=== PATIENT | male | born 1990 | race Caucasian/White ===

== ENCOUNTER 2021-05-28 15:12 | Emergency (ER) | payer BC ==
[2021-05-28 15:22] LABS: Glucose,Whole Blood 93 mg/dL (75-99)
[2021-05-28] MEDS ORDERED: DIPH,PERTUS(ACELL)TETVAC-LF 0.5 ML VIAL IM ONE (15:25)
[2021-05-28] MEDS ORDERED: SODIUM CHLORIDE 0.9% 1,000 ML IV STA (15:30)
--- NOTE | 2021-05-28 15:41 | XR ---
EXAMINATION TYPE: XR chest 1V DATE OF EXAM: 05/28/2021 COMPARISON: NONE HISTORY: Fall. Pain TECHNIQUE: Single view FINDINGS: Heart and mediastinum are normal. Lungs are clear of consolidation. There is some coarsenin g of the interstitial markings in the left midlung field. There are chest leads. There is no pneumoth orax. Bony thorax appears intact. IMPRESSION: Mild interstitial density in the left lung. Normal heart. No rib fracture seen.
--- NOTE | 2021-05-28 15:42 | XR ---
EXAMINATION TYPE: XR pelvis AP view DATE OF EXAM: 05/28/2021 COMPARISON: NONE HISTORY: Trauma. Pain TECHNIQUE: Single view FINDINGS: Pelvic ring is intact. There are clips over the right sacroiliac joint. Proximal femurs and hip joints are intact. Hip joint spaces are normal. Sacroiliac joints appear normal. IMPRESSION: Normal pelvis.
--- NOTE | 2021-05-28 15:45 | CT ---
EXAMINATION TYPE: CT brain cspine wo con DATE OF EXAM: 05/28/2021 COMPARISON: None HISTORY: Syncopal episode with posterior injury today. AMS following. CT DLP: 1562.8 mGycm Automated exposure control for dose reduction was used. Images of the brain and cervical spine without contrast. Ventricles have normal size. There is no mass effect nor midline shift. I do not see evidence for int racranial hemorrhage. Exam limited by beam hardening artifact of the frontal bones. The calvarium is intact. There is normal aeration of the mastoid sinuses. IMPRESSION: No evidence of acute intracranial abnormality.
[2021-05-28 15:48] LABS: Basophils # (A) 0.1 k/uL (0-0.2); Basophils % (A) 1 %; Eosinophils # (A) 0.2 k/uL (0-0.7); Eosinophils % (A) 3 %; HCT 49.3 % (39.0-53.0); HGB 16.5 gm/dL (13.0-17.5); Lymphocytes % (A) 34 %; MCH 30.2 pg (25.0-35.0); MCHC 33.4 g/dL (31.0-37.0); MCV 90.4 fL (80.0-100.0); Mean Platelet Volume 7.1; Monocytes # (A) 0.3 k/uL (0-1.0); Monocytes % (A) 5 %; Neutrophils # (A) 3.3 k/uL (1.3-7.7); Neutrophils % (A) 56 %; Platelet Count 256 k/uL (150-450); RBC 5.46 m/uL (4.30-5.90); RDW 11.9 % (11.5-15.5)
[2021-05-28] MEDS ORDERED: KETOROLAC 15 MG/ML 1 ML VIAL IVP STA (15:53)
[2021-05-28 16:00] VITALS: RESP 20
[2021-05-28] MEDS ORDERED: LIDOCAINE 1% INJ 10MG/ML (20 ML MDV) SQ ONE (16:00)
--- NOTE | 2021-05-28 16:01 | ED ---
General Adult HPI <Batsheva Jaramillo - Last Filed: 05/28/21 16:30> - General Source: RN notes reviewed, old records reviewed <Bill Hernandez - Last Filed: 05/28/21 16:41> - General Stated complaint: Unresponsive/fall - History of Present Illness Initial comments: Patient is a 30-year-old male with only remarkable past medical history for a appendectomy presents emergency Department status post fall. 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 At the site of blood, he [place] Back[place] in April. EMS Was Called by others at the scene. Patient was sitting up, not answering questions at the scene grabbing the back of his head. EMS brought him to the emergency department for further evaluation. EMS states that he was immediately localizing to pain, however was not speaking. He would spontaneously open his eyes. However he began to not open his eyes spontaneously and only to pain placed with a GCS of 8 initially upon arrival. This time was when I initially evaluated him. He was not speaking. Would open his eyes only to pain. He localizes to pain. Cannot answer any questions. Patient presents as a level I priority 1 trauma activation secondary to his mental status. Patient arrives to the emergency department approximately 20-25 minutes after the initial fall. Per medical history, patient is not on blood thinners. (Bill Hernandez) - Related Data Previous Rx's Medication Instructions Recorded Hydrocodone/Acetaminophen [[place] 1 - 2 each PO Q6HR PRN #60 tab 03/10/16 5-325] Tamsulosin HCl [Flomax] 0.4 mg PO DAILY #7 cap 03/10/16 Allergies Allergy/AdvReac Type Severity Reaction Status Date / Time No Known Allergies Allergy Verified 03/10/16 06:46 Review of Systems ROS Other: All systems not noted in ROS Statement are negative. <Batsheva Jaramillo - Last Filed: 05/28/21 16:30> ROS Other: All systems not noted in ROS Statement are negative. <Bill Hernandez - Last Filed: 05/28/21 16:41> ROS Statement: Those systems with pertinent positive or pertinent negative responses have been documented in the HPI. Unable to obtain secondary to patient's current clinical status. (Bill Hernandez) Past Medical History Past Medical History: No Reported History History of Any Multi-Drug Resistant Organisms: None Reported Past Surgical History: Appendectomy Additional Past Surgical History / Comment(s): scar tissue surgery from appendectomy Past Anesthesia/Blood Transfusion Reactions: No Reported Reaction Past Psychological History: No Psychological Hx Reported Past Alcohol Use History: Occasional Past Drug Use History: None Reported - Past Family History Brother(s) Family Medical History: Seizure Disorder Additional Family Medical History / Comment(s): AUTISM <Bill Hernandez - Last Filed: 05/28/21 16:41> General Exam <Bill Hernandez - Last Filed: 05/28/21 16:41> - General Exam Comments Initial Comments: General: Patient is somewhat unresponsive, with eyes closed nodding off on the stretcher. HEAD: Patient has a right occiput Adilia Lori approximately 2 some reason in diameter with a 1 cm laceration located over the distal bleeding at this time. Negative raccoon eyes, negative Austin sign. Negative hemotympanum. EYES: PERRLA, EOMI, conjunctiva normal, no discharge. Pupils are 3 mm and equal bilaterally. ENT: Hearing grossly intact, normal oropharynx. Patient has tobacco chew in his mouth. No obvious injury. No injury to the tongue. Negative hemotympanum. No septal hematoma appreciated. Dried blood over the left nare RESPIRATORY: Clear breath sounds bilaterally. No wheezes, rales, or rhonchi. No increased work of breathing. C/V: Regular rate and rhythm. S1 and S2 auscultated, no edema, peripheral pulses 2+ and intact throughout ABD: Abd is soft, nontender, nondistended EXT: Patient is localizing to pain and is moving all 4 extremities. He is intimately tapping his feet. No obvious deformity. Patient does have lacerations over the right middle finger. SKIN: Patient has a 1-2 cm laceration 2 located over the distal pad of the right middle finger. He is likely will require stitches. Patient also has a approximately 1-2 cm hematoma over the posterior right occiput with a central 1 cm laceration that will require danny. NEURO: Intermittently alert. Not oriented. GCS is 8 upon arrival. We'll intermittently move his arms. Localizes pain. Opens eyes to pain.. Does not speak. (DavidBill) Course Vital Signs 05/28/21 15:45 Temperature 97.7 F Pulse Rate 58 L Respiratory 20 Rate Blood Pressure 137/85 O2 Sat by Pulse 99 Oximetry Procedures - Laceration Laceration #1 Consent Obtained: verbal consent Indication: laceration Site: hand (right middle finger) Size (cm): 3 Description: linear Depth: simple, single layer Anesthetic Used: lidocaine 1% Anesthesia Technique: local infiltration Amount (mls): 1 Pre-repair: irrigated extensively Type of Sutures: nylon Size of Sutures: 5-0 Number of Sutures: 3 Technique: simple, interrupted Patient Tolerated Procedure: well, no complications Laceration #2 Consent Obtained: verbal consent Indication: laceration Site: scalp Size (cm): 3 Description: linear Depth: simple, single layer Type of Sutures: other (danny) Number of Sutures: 2 Patient Tolerated Procedure: well, no complications <Batsheva Jaramillo - Last Filed: 05/28/21 16:30> Medical Decision Making - Lab Data Result diagrams: 05/28/21 15:37 05/28/21 15:37 <Batsheva Jaramillo - Last Filed: 05/28/21 16:30> - Lab Data Result diagrams: 05/28/21 15:37 05/28/21 15:37 - EKG Data -: EKG Interpreted by Or <Bill Hernandez - Last Filed: 05/28/21 16:41> - Medical Decision Making Based on the patient's presentation and physical exam, patient is a priority 1 trauma. ATLS protocol was followed. Only apparent injury is to his right middle finger as well as over his posterior occiput, with both being superficial lacerations. IV access was obtained. Trauma laboratory studies were drawn and sent. Patient was started on 1 L fluid bolus. At this time, the patient's GCS is no improved to 10, sees no spontaneous opening his eyes. This is approximately 30-35 minutes after the initial injury. Patient was therefore immediately taken to CT for CT brain and C-spine. His no other obvious injuries and just require further imaging at this time. He is protecting his airway and vital signs otherwise within normal limits. Trauma surgery on-call presents bedside Dr. Stroud and he was in agreement with this plan. Patient's CT head, brain, C-spine returned negative for any acute injury. No acute intracranial abnormality. Chest and pelvis x-ray were obtained and showed no acute injury to the pelvis, in no acute cardiopulmonary process on the chest x-ray. Laboratory studies began to return, were remarkable for a negative troponin, a slightly elevated lactate at 2.3 which is likely secondary to dehydration, and a relatively unremarkable CBC and CMP otherwise. I'll call level is less than 10. UDS is still pending. EKG showed no signs of acute ischemia. Patient was given a tetanus booster. He was given Toradol for pain management. I reevaluated him, and he was more alert at this time. He is alert and oriented 3-4. Now with a GCS of 13-14, still intermittently speaking confusingly. Hand x-ray shows no obvious injury at this time. Assisting mid- level provider close the lacerations on the right middle finger as well as stapled the posterior occiput laceration. I spoke to patient as well as family who is now present, I splinted him that I would like to transfer him to a facility with higher level care, specifically neurosurgery on 24 hour call. I spoke with the trauma surgeon, Dr. Stroud who was in agreement this plan. We are recommended observation due to his continued altered mental status following his head injury. It could be secondary to a concussion, however due to the persistence of GCS of 8 upon arrival, we believe it is best to admit him to observation out of an abundance of caution. There were agreement this plan. I initially attempted to contact [facility] for transfer. When I was able to speak with the transfer line and , patient was refused as the hospital is full. I next contacted [facility] for transfer, also refused the patient. I next contacted [facility] for transfer who accepted the patient. Accepting physician is Dr. Rucker. Patient was therefore transferred in stable condition to [facility] for higher level of care. (Bill Hernandez) - Lab Data Lab Results 05/28/21 05/28/21 05/28/21 Range/Units 15:20 15:37 15:37 WBC 6.0 (3.8-10.6) k/uL RBC 5.46 (4.30-5.90) m/uL Hgb 16.5 (13.0-17.5) gm/dL Hct 49.3 (39.0-53.0) % MCV 90.4 (80.0-100.0) fL MCH 30.2 (25.0-35.0) pg MCHC 33.4 (31.0-37.0) g/dL RDW 11.9 (11.5-15.5) % Plt Count 256 (150-450) k/uL MPV 7.1 Neutrophils % 56 % Lymphocytes % 34 % Monocytes % 5 % Eosinophils % 3 % Basophils % 1 % Neutrophils # 3.3 (1.3-7.7) k/uL Lymphocytes # 2.0 (1.0-4.8) k/uL Monocytes # 0.3 (0-1.0) k/uL Eosinophils # 0.2 (0-0.7) k/uL Basophils # 0.1 (0-0.2) k/uL PT 10.2 (9.0-12.0) sec INR 0.9 (<1.2) APTT 20.3 L (22.0-30.0) sec Sodium (137-145) mmol/L Potassium (3.5-5.1) mmol/L Chloride (98-107) mmol/L Carbon Dioxide (22-30) mmol/L Anion Gap mmol/L BUN (9-20) mg/dL Creatinine (0.66-1.25) mg/dL Est GFR (CKD-EPI)AfAm (>60 ml/min/1.73 sqM) Est GFR (CKD-EPI)NonAf (>60 ml/min/1.73 sqM) Glucose (74-99) mg/dL POC Glucose (mg/dL) 93 (75-99) mg/dL POC Glu Professional Security Officer ID Salvador Gould Plasma Lactic Acid Shamar (0.7-2.0) mmol/L Calcium (8.4-10.2) mg/dL Total Bilirubin (0.2-1.3) mg/dL AST (17-59) U/L ALT (4-49) U/L Alkaline Phosphatase (38-126) U/L Troponin I (0.000-0.034) ng/mL Total Protein (6.3-8.2) g/dL Albumin (3.5-5.0) g/dL Serum Alcohol mg/dL Blood Type Recheck Bld Type Recheck Status Spec Expiration Date 05/28/21 05/28/21 05/28/21 Range/Units 15:37 15:37 15:37 WBC (3.8-10.6) k/uL RBC (4.30-5.90) m/uL Hgb (13.0-17.5) gm/dL Hct (39.0-53.0) % MCV (80.0-100.0) fL MCH (25.0-35.0) pg MCHC (31.0-37.0) g/dL RDW (11.5-15.5) % Plt Count (150-450) k/uL MPV Neutrophils % % Lymphocytes % % Monocytes % % Eosinophils % % Basophils % % Neutrophils # (1.3-7.7) k/uL Lymphocytes # (1.0-4.8) k/uL Monocytes # (0-1.0) k/uL Eosinophils # (0-0.7) k/uL Basophils # (0-0.2) k/uL PT (9.0-12.0) sec INR (<1.2) APTT (22.0-30.0) sec Sodium 140 (137-145) mmol/L Potassium 4.1 (3.5-5.1) mmol/L Chloride 103 (98-107) mmol/L Carbon Dioxide 27 (22-30) mmol/L Anion Gap 10 mmol/L BUN 12 (9-20) mg/dL Creatinine 0.94 (0.66-1.25) mg/dL Est GFR (CKD-EPI)AfAm >90 (>60 ml/min/1.73 sqM) Est GFR (CKD-EPI)NonAf >90 (>60 ml/min/1.73 sqM) Glucose 113 H (74-99) mg/dL POC Glucose (mg/dL) (75-99) mg/dL POC Glu Professional Security Officer ID Plasma Lactic Acid Shamar 2.3 H* (0.7-2.0) mmol/L Calcium 9.6 (8.4-10.2) mg/dL Total Bilirubin 0.6 (0.2-1.3) mg/dL AST 23 (17-59) U/L ALT 23 (4-49) U/L Alkaline Phosphatase 71 (38-126) U/L Troponin I <0.012 (0.000-0.034) ng/mL Total Protein 7.2 (6.3-8.2) g/dL Albumin 4.5 (3.5-5.0) g/dL Serum Alcohol <10 mg/dL Blood Type Recheck Bld Type Recheck Status Spec Expiration Date 05/28/21 Range/Units 15:37 WBC (3.8-10.6) k/uL RBC (4.30-5.90) m/uL Hgb (13.0-17.5) gm/dL Hct (39.0-53.0) % MCV (80.0-100.0) fL MCH (25.0-35.0) pg MCHC (31.0-37.0) g/dL RDW (11.5-15.5) % Plt Count (150-450) k/uL MPV Neutrophils % % Lymphocytes % % Monocytes % % Eosinophils % % Basophils % % Neutrophils # (1.3-7.7) k/uL Lymphocytes # (1.0-4.8) k/uL Monocytes # (0-1.0) k/uL Eosinophils # (0-0.7) k/uL Basophils # (0-0.2) k/uL PT (9.0-12.0) sec INR (<1.2) APTT (22.0-30.0) sec Sodium (137-145) mmol/L Potassium (3.5-5.1) mmol/L Chloride (98-107) mmol/L Carbon Dioxide (22-30) mmol/L Anion Gap mmol/L BUN (9-20) mg/dL Creatinine (0.66-1.25) mg/dL Est GFR (CKD-EPI)AfAm (>60 ml/min/1.73 sqM) Est GFR (CKD-EPI)NonAf (>60 ml/min/1.73 sqM) Glucose (74-99) mg/dL POC Glucose (mg/dL) (75-99) mg/dL POC Glu Professional Security Officer ID Plasma Lactic Acid Shamar (0.7-2.0) mmol/L Calcium (8.4-10.2) mg/dL Total Bilirubin (0.2-1.3) mg/dL AST (17-59) U/L ALT (4-49) U/L Alkaline Phosphatase (38-126) U/L Troponin I (0.000-0.034) ng/mL Total Protein (6.3-8.2) g/dL Albumin (3.5-5.0) g/dL Serum Alcohol mg/dL Blood Type Recheck No Previous Record Bld Type Recheck Status CABO Indicated Spec Expiration Date 05/31/20212336 - EKG Data EKG Comments: 12-lead Electrocardiogram Interpretation Note EKG was reviewed and interpreted by myself. 12-lead ECG performed at 1536 is i nterpreted by me as revealing normal sinus rhythm at a rate of 65 beats per minute. [place] is normal. [place] interval is 150 ms, QRS durations 110 ms, QTc is 416 ms.. There are J point elevations but no obvious signs of ST segment elevations or T wave inversions.. R wave progression across the precordium was satisfactory. By my interpretation this EKG is non-diagnostic for acute ischemia. (Bill Hernandez) Disposition <Batsheva Jaramillo - Last Filed: 05/28/21 16:30> - Out of Hospital Transfer - Req. Specs Out of Hospital Transfer - Requested Specifics: Other Emergency Center (Transferred to [facility] for higher level of care with Neuro surgery on 24 hour call. patient requires observation for continued AMS.) <Bill Hernandez - Last Filed: 05/28/21 16:41> Clinical Impression: Head trauma, Fall, Altered mental status, Concussion, Hand laceration, Laceration of head Disposition: OTHER INSTITUTION NOT DEFINED Condition: Stable Referrals: Evita Mclaughlin MD [Primary Care Provider] - 1-2 days
[2021-05-28 16:05] LABS: INR 0.9 (<1.2); Prothrombin Time 10.2 sec (9.0-12.0)
[2021-05-28 16:07] LABS: ALT 23 U/L (4-49); AST 23 U/L (17-59); African American GFR (CKD) >90 (>60 ml/min/1.73 sqM); Albumin 4.5 g/dL (3.5-5.0); Alcohol <10 mg/dL; Alkaline Phosphatase 71 U/L (38-126); Anion Gap 10 mmol/L; Blood Urea Nitrogen 12 mg/dL (9-20); Calcium 9.6 mg/dL (8.4-10.2); Carbon Dioxide 27 mmol/L (22-30); Chloride 103 mmol/L (98-107); Glucose 113 mg/dL (74-99); Non-African American GFR(CKD) >90 (>60 ml/min/1.73 sqM); Partial Thromboplastin Time 20.3 sec (22.0-30.0); Potassium 4.1 mmol/L (3.5-5.1); Sodium 140 mmol/L (137-145); Total Bilirubin 0.6 mg/dL (0.2-1.3); Total Protein 7.2 g/dL (6.3-8.2)
--- NOTE | 2021-05-28 16:42 | XR ---
EXAMINATION TYPE: XR hand complete RT DATE OF EXAM: 05/28/2021 COMPARISON: NONE HISTORY: Pain TECHNIQUE: 3 views FINDINGS: There is mid shaft fracture of the fifth metacarpal. There is bridging callus formation. Fr acture line faintly visible. I see no acute fracture nor dislocation. The fingers are intact. Carpal bones are intact. IMPRESSION: Healing nondisplaced fracture of the fifth metacarpal mid shaft. Slight posterior angulat ion at the fracture site.
--- NOTE | 2021-05-28 16:52 | P.GSCN ---
History of Present Illness Consult date: 05/28/21 Reason for Consult: Priority 1 trauma History of present illness: 30-year-old male came to the hospital as a priority 1 trauma because of a Gla scow coma scale of 8. 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 He apparently lost consciousness after seeing the blood and fell backwards. Patient had a small laceration to his finger and a small laceration to the posterior scalp. Patient has persistent confusion after the episode. He underwent CT brain and C-spine which was normal. Chest x-ray pelvis x-ray and and x-ray were clear. Review of Systems ROS unobtainable: due to mental status Past Medical History Past Medical History: No Reported History History of Any Multi-Drug Resistant Organisms: None Reported Past Surgical History: Appendectomy Additional Past Surgical History / Comment(s): scar tissue surgery from appendectomy Past Anesthesia/Blood Transfusion Reactions: No Reported Reaction Past Psychological History: No Psychological Hx Reported Past Alcohol Use History: Occasional Past Drug Use History: None Reported - Past Family History Brother(s) Family Medical History: Seizure Disorder Additional Family Medical History / Comment(s): AUTISM Medications and Allergies Home Medications Medication Instructions Recorded Confirmed Type Hydrocodone/Acetaminophen [[place] 1 - 2 each PO Q6HR PRN #60 tab 03/10/16 Rx 5-325] Tamsulosin HCl [Flomax] 0.4 mg PO DAILY #7 cap 03/10/16 Rx Allergies Allergy/AdvReac Type Severity Reaction Status Date / Time No Known Allergies Allergy Verified 03/10/16 06:46 Surgical - Exam Vital Signs Temp Pulse Resp BP Pulse Ox 97.7 F 58 L 20 137/85 99 05/28/21 15:45 05/28/21 15:45 05/28/21 15:45 05/28/21 15:45 05/28/21 15:45 Physical exam: General: Well-developed, well-nourished HEENT: Right posterior scalp laceration 1-2 cm in length, no significant hematoma, no step-off, equal pupils Abdomen: Nontender, nondistended Extremities: 170 laceration right middle finger Neuro: Alert and oriented Results - Labs 05/28/21 15:37 05/28/21 15:37 Abnormal Lab Results - Last 24 Hours (Table) 05/28/21 05/28/21 05/28/21 Range/Units 15:37 15:37 15:37 APTT 20.3 L (22.0-30.0) sec Glucose 113 H (74-99) mg/dL Plasma Lactic Acid Shamar 2.3 H* (0.7-2.0) mmol/L Diabetes panel 05/28/21 Range/Units 15:37 Sodium 140 (137-145) mmol/L Potassium 4.1 (3.5-5.1) mmol/L Chloride 103 (98-107) mmol/L Carbon Dioxide 27 (22-30) mmol/L BUN 12 (9-20) mg/dL Creatinine 0.94 (0.66-1.25) mg/dL Glucose 113 H (74-99) mg/dL Calcium 9.6 (8.4-10.2) mg/dL AST 23 (17-59) U/L ALT 23 (4-49) U/L Alkaline Phosphatase 71 (38-126) U/L Total Protein 7.2 (6.3-8.2) g/dL Albumin 4.5 (3.5-5.0) g/dL Calcium panel 05/28/21 Range/Units 15:37 Calcium 9.6 (8.4-10.2) mg/dL Albumin 4.5 (3.5-5.0) g/dL Pituitary panel 05/28/21 Range/Units 15:37 Sodium 140 (137-145) mmol/L Potassium 4.1 (3.5-5.1) mmol/L Chloride 103 (98-107) mmol/L Carbon Dioxide 27 (22-30) mmol/L BUN 12 (9-20) mg/dL Creatinine 0.94 (0.66-1.25) mg/dL Glucose 113 H (74-99) mg/dL Calcium 9.6 (8.4-10.2) mg/dL Adrenal panel 05/28/21 Range/Units 15:37 Sodium 140 (137-145) mmol/L Potassium 4.1 (3.5-5.1) mmol/L Chloride 103 (98-107) mmol/L Carbon Dioxide 27 (22-30) mmol/L BUN 12 (9-20) mg/dL Creatinine 0.94 (0.66-1.25) mg/dL Glucose 113 H (74-99) mg/dL Calcium 9.6 (8.4-10.2) mg/dL Total Bilirubin 0.6 (0.2-1.3) mg/dL AST 23 (17-59) U/L ALT 23 (4-49) U/L Alkaline Phosphatase 71 (38-126) U/L Total Protein 7.2 (6.3-8.2) g/dL Albumin 4.5 (3.5-5.0) g/dL Assessment and Plan (1) Fall Narrative/Plan: 30-year-old male status post fall with fairly impressive concussive symptoms still at this time. Agree with plans for transfer to tertiary care center where neurosurgery backup was available. Repeat CAT scan may be necessary. Current Visit: Yes Status: Acute Code(s): W19.XXXA - UNSPECIFIED FALL, INITIAL ENCOUNTER SNOMED Code(s): 0087568
[2021-05-28] MEDS ORDERED: MORPHINE SULFATE 4 MG/ML SYRINGE IVP STA (17:34)
[2021-05-28] MEDS ORDERED: ONDANSETRON 4 MG/2 ML VIAL IVP STA (17:34)
[2021-05-28 18:02] VITALS: BP 157/74; PULSE 79; TEMP 98.2
== END 2021-05-28 18:02 | disposition other institution (70) ==
LOC: EC 15:12
DX: S06.0X9A Concussion with loss of consciousness of unspecified duration, initial encounter (principal); S01.01XA Laceration without foreign body of scalp, initial encounter; S61.212A Laceration without foreign body of right middle finger without damage to nail, initial encounter; R41.82 Altered mental status, unspecified; Z79.899 Other long term (current) drug therapy; W19.XXXA Unspecified fall, initial encounter; W22.8XXA Striking against or struck by other objects, initial encounter
CPT/HCPCS: 36415; 86900; 86901; 80053; 83605; 84484; 85025; 85610; 85730; 86850; 80320; 72170; 73130; 71045; 72125; 70450; 90715; 99285; 90471; 96374; 12002; J2001; J1885; 93005

== ENCOUNTER → 2021-06-14 | Outpatient (CLI) | payer BC ==
--- NOTE | 2021-06-14 09:32 | CT ---
EXAMINATION TYPE: CT brain wo con DATE OF EXAM: 06/14/2021 COMPARISON: 05/28/2021 HISTORY: 30-year-old male intercranial hemorrhage follow up. Left eye pain and left-sided headache TECHNIQUE: Examination was done in axial plane without intravenous contrast. Coronal and sagittal r econstructions performed. CT DLP: 945.5 mGycm Automated exposure control for dose reduction was used. FINDINGS: There is accentuated patchy hypodensity within the bilateral inferior frontal lobes, left greater juve n right, for example, axial images 6 through 10. Review of the prior exam shows extensive streak and beam hardening artifact through this region. It would be difficult to exclude subarachnoid blood or c ortical contusions in this region on the 05/28/2021 study. Otherwise, there is no evidence of acute intracranial hemorrhage, acute ischemic changes, mass, mass -effect, or extra-axial fluid collection. There is no effacement of cerebral sulci or basal subarach noid cisterns. There is no hydrocephalus. There is no midline shift. Sheriff-white matter distinction is preserved. Some trapped fluid noted throughout the left mastoid air cells. Mastoid air cells well pneumatized. T he globes are intact. IMPRESSION: 1. Patchy hypodensity within the bilateral inferior frontal lobes, left greater than right. Unable to exclude areas of developing posttraumatic encephalomalacia. Recommended MRI correlation. 2. No acute intracranial hemorrhage or midline shift identified.
== END | disposition home or self-care (01) ==
LOC: RADCTMAIN 08:38
PROVIDERS: ATTEND Internal Medicine
DX: R93.0 Abnormal findings on diagnostic imaging of skull and head, not elsewhere classified (principal)
CPT/HCPCS: 70450

== ENCOUNTER 2021-06-17 23:23 | Emergency (ER) | payer BC ==
--- NOTE | 2021-06-18 00:05 | ED ---
Recheck HPI - General Chief Complaint: Recheck/Abnormal Lab/Rx Stated Complaint: head pain Time Seen by Provider: 06/17/21 23:42 Source: patient Mode of arrival: ambulatory Limitations: no limitations - History of Present Illness Initial Comments: 30-year-old male patient presented to the emergency department requesting copies of his CAT scan that he had performed outpatient on 06/14/2021. Patient was recently in and transferred to [facility] after a fall with subdural hematoma. Patient states that symptoms have been improving however he had an outpatient CT done a few days ago to monitor progress and there were some abnormalities that his physician wanted him to have evaluated tonight. She wanted him to go to [facility] to see neurosurgery however instructed him to stop at this hospital to obtain copies of his computed tomography scan to take with him. He denies any significant pain, dizziness, weakness at this time. States he feels well and is not concerned about driving to the other facility. - Related Data Previous Rx's Medication Instructions Recorded Hydrocodone/Acetaminophen [Herrick 1 - 2 each PO Q6HR PRN #60 tab 03/10/16 5-325] Tamsulosin HCl [Flomax] 0.4 mg PO DAILY #7 cap 03/10/16 Allergies Allergy/AdvReac Type Severity Reaction Status Date / Time No Known Allergies Allergy Verified 06/17/21 23:36 Review of Systems ROS Statement: Those systems with pertinent positive or pertinent negative responses have been documented in the HPI. ROS Other: All systems not noted in ROS Statement are negative. Past Medical History Past Medical History: No Reported History History of Any Multi-Drug Resistant Organisms: None Reported Past Surgical History: Appendectomy Additional Past Surgical History / Comment(s): scar tissue surgery from appendectomy Past Anesthesia/Blood Transfusion Reactions: No Reported Reaction Past Psychological History: No Psychological Hx Reported Smoking Status: Never smoker Past Alcohol Use History: Occasional Past Drug Use History: None Reported - Past Family History Brother(s) Family Medical History: Seizure Disorder Additional Family Medical History / Comment(s): AUTISM General Exam Limitations: no limitations General appearance: alert, in no apparent distress, other (This is a well- developed, well-nourished adult male patient in no acute distress.) Eye exam: Present: normal appearance, PERRL, EOMI. Absent: scleral icterus, conjunctival injection, periorbital swelling ENT exam: Present: normal exam, normal oropharynx, mucous membranes moist Respiratory exam: Present: normal lung sounds bilaterally. Absent: respiratory distress, wheezes, rales, rhonchi, stridor Cardiovascular Exam: Present: regular rate, normal rhythm, normal heart sounds. Absent: systolic murmur, diastolic murmur, rubs, gallop, clicks Neurological exam: Present: alert, oriented X3, CN II-XII intact Psychiatric exam: Present: normal affect, normal mood Skin exam: Present: warm, dry, intact, normal color. Absent: rash Course Vital Signs 06/17/21 06/18/21 23:31 00:30 Temperature 99.0 F 98.7 F Pulse Rate 103 H 94 Respiratory 20 18 Rate Blood Pressure 129/85 127/74 O2 Sat by Pulse 100 98 Oximetry Medical Decision Making - Medical Decision Making 30-year-old male patient presented to the emergency department today requesting copy of his outpatient CT scan. Has no new complaints. Physical examination is normal. He is given copy of his CT. He is going to proceed directly to [facility]. Return parameters were discussed in detail. He verbalizes understanding and agrees with this plan. Case discussed with my attending Dr. Zuñiga. Disposition Clinical Impression: Recent head injury Disposition: HOME SELF-CARE Condition: Good Instructions (If sedation given, give patient instructions): Head Injury (ED) Additional Instructions: Proceed directly to [facility] as requested by her primary care physician. Is patient prescribed a controlled substance at d/c from ED?: No Referrals: Evita Mclaughlin MD [Primary Care Provider] - 1-2 days Time of Disposition: 00:05
[2021-06-18 00:32] VITALS: BP 127/74; PULSE 94; RESP 18; TEMP 98.7
== END 2021-06-18 00:25 | disposition home or self-care (01) ==
LOC: EC 23:23
DX: S09.90XA Unspecified injury of head, initial encounter (principal); Z72.89 Other problems related to lifestyle
CPT/HCPCS: 99283

== ENCOUNTER → 2021-07-19 | Outpatient (CLI) | payer BC ==
--- NOTE | 2021-07-20 07:56 | MR ---
EXAMINATION TYPE: MR brain wo/w con DATE OF EXAM: 07/19/2021 COMPARISON: CT brain June 14, 2021. Older CT May 28, 2021. HISTORY: Abnormal CT follow up, headaches, head trauma 05-28-21 TECHNIQUE: Multiplanar, multisequence images of the brain and brainstem is performed without and with IV contras t, utilizing 7.5 mL intravenous Gadavist . FINDINGS: Diffusion weighted images demonstrate no evidence of a recent infarct or other diffusion ab normality. The ventricular system and cisternal spaces are normal in size and appearance. The brain volume is age appropriate. No significant white matter changes. Corresponding to recent CT there is e vidence of be sent trauma to the inferior bilateral frontal hemispheres. On the right there is residu al 2.4 x 0.9 cm rim-enhancing thin-walled fluid collection and on the left there is more vague area o f slightly thickened dural enhancement with heterogeneous increased T2 signal and some volume loss. T here is blooming artifact on the T2 star weighted images. Midline structures demonstrate normal morphology. The craniocervical junction appears within normal limits. Post contrast images demonstrate no additional areas of abnormal enhancement. The dural veno us sinuses appear patent. The visualized sinuses are clear and the globes are intact. Increased fluid signal left mastoid air cells remains present, favoring retained secretions. IMPRESSION: Confirmation of bilateral inferior frontal lobe posttraumatic injury with evidence of blo od product or diffuse axonal injury, small thin-walled fluid collection on the right favors resolving hematoma. Some enhancement consistent with subacute injury noted.
== END | disposition home or self-care (01) ==
LOC: RADMRIMAIN 08:51
PROVIDERS: ATTEND Internal Medicine
DX: S06.9X0D Unspecified intracranial injury without loss of consciousness, subsequent encounter (principal)
CPT/HCPCS: 70553; A9585